=== PATIENT | female | born 1955 | race Caucasian/White ===

== ENCOUNTER → 2016-10-12 | Outpatient (CLI) | payer OTHER ==
[~2016-10-12] VITALS: Ht 157.5 cm; Wt 68.0 kg
[~2016-10-12] MED LIST: LIDOCAINE 2% INJ 100 MG/5 ML SDV (FOR ANES.) As Ordered ONE; NS 1,000 ML IV SCH; PROPOFOL 200 MG/20 ML VIAL As Ordered ONE; THYR0.237 XX; VITA200038 PO; [UNRECOGNIZED DRUG - CODE] PO; [UNRECOGNIZED DRUG - REMARK]
--- NOTE | 2016-10-12 08:04 | ROOR ---
Patient Name: Jessica Mancera Procedure Date: 10/12/2016 7:25 AM Date of : 1955 Age: 60 Room: [facility] Gender: Female Note Status: Finalized Procedure: Total Colonoscopy to Cecum + Cold Snare Polypectomy + Hemoclips Indications: Colon cancer screening in patient at increased risk: Colorectal cancer in father, High risk colon cancer surveillance: Personal history of colonic polyps Providers: Wolfgang Shea MD Referring MD: ALLEN GUERRERO NP Requesting Provider: Medicines: Monitored Anesthesia Care Complications: No immediate complications. Procedure: Pre-Anesthesia Assessment: - The heart rate, respiratory rate, oxygen saturations, blood pressure, adequacy of pulmonary ventilation, and response to care were monitored throughout the procedure. The Colonoscope was introduced through the anus and advanced to the cecum, identified by appendiceal orifice and ileocecal valve. The colonoscopy was performed without difficulty. The patient tolerated the procedure well. The quality of the bowel preparation was excellent. Findings: The perianal and digital rectal examinations were normal. Non-bleeding internal hemorrhoids were found during retroflexion. The hemorrhoids were small and Grade I (internal hemorrhoids that do not prolapse). A small polyp was found in the proximal ascending colon. The polyp was sessile. The polyp was removed with a cold snare. Resection and retrieval were complete. To prevent bleeding after the polypectomy, two hemostatic clips were successfully placed (MR conditional). There was no bleeding at the end of the procedure. The exam was otherwise without abnormality on direct and retroflexion views. Impression: - Non-bleeding internal hemorrhoids. - One small polyp in the proximal ascending colon, removed with a cold snare. Resected and retrieved. Clips (MR conditional) were placed. - The examination was otherwise normal on direct and retroflexion views. - The exam was otherwise normal to the cecum. Recommendation: - Patient has a contact number available for emergencies. The signs and symptoms of potential delayed complications were discussed with the patient. Return to normal activities tomorrow. Written discharge instructions were provided to the patient. - High fiber diet. - Discharge patient to home. - Continue present medications. - Await pathology results. - Telephone GI clinic for pathology results in 1 week. - Repeat colonoscopy for surveillance based on pathology results. - Return to referring physician. - The findings and recommendations were discussed with the patient's family. Wolfgang Shea MD Wolfgang Shea MD 10/12/2016 8:04:06 AM This report has been signed electronically. Number of Addenda: 0 Note Initiated On: 10/12/2016 7:25 AM Estimated Blood Loss: Estimated blood loss: none.
[2016-10-12 08:30] VITALS: BP 96/68
== END | disposition home or self-care (01) ==
LOC: M OPP 06:40
PROVIDERS: ATTEND Internal Medicine Gastroenterology
DX: Z12.11 Encounter for screening for malignant neoplasm of colon (principal); D12.2 Benign neoplasm of ascending colon; K64.0 First degree hemorrhoids; Z86.010 Personal history of colon polyps; Z80.0 Family history of malignant neoplasm of digestive organs; E78.5 Hyperlipidemia, unspecified; E03.9 Hypothyroidism, unspecified; R12 Heartburn; G43.909 Migraine, unspecified, not intractable, without status migrainosus; Z78.0 Asymptomatic menopausal state; R06.83 Snoring; N18.9 Chronic kidney disease, unspecified; R32 Unspecified urinary incontinence; Z87.891 Personal history of nicotine dependence; Z88.5 Allergy status to narcotic agent; Z88.0 Allergy status to penicillin; Z79.899 Other long term (current) drug therapy

== ENCOUNTER → 2016-10-21 | Outpatient (REF) | payer OTHER ==
[~2016-10-21] MED LIST changes: -LIDOCAINE 2% INJ 100 MG/5 ML SDV (FOR ANES.) As Ordered ONE; -NS 1,000 ML IV SCH; -PROPOFOL 200 MG/20 ML VIAL As Ordered ONE
== END ==
LOC: M LAB REF 12:14
PROVIDERS: ATTEND Internal Medicine
DX: E03.9 Hypothyroidism, unspecified (principal)

== ENCOUNTER → 2017-07-23 | Outpatient (REF) | payer OTHER ==
[2017-07-23 12:33] LABS: C REACTIVE PROTEIN QUANTITATIV < 0.30 MG/DL (0.00-0.30); FREE T3 3.2 PG/ML (2.2-4.0)
[2017-07-23 12:46] LABS: ESTRADIOL 21.9 PG/ML
[2017-07-25 00:06] LABS: ANTINUCLEAR ANTIBODIES DIRECT Negative (Negative); HOMOCYST(E)INE SERUM 8.9 umol/L (0.0-15.0); TESTOSTERONE FREE (DIRECT) 1.5 pg/mL (0.0-4.2)
== END ==
LOC: M LAB REF 11:51
DX: Z79.890 Hormone replacement therapy (principal)
CPT/HCPCS: 84403

== ENCOUNTER → 2017-09-06 | Outpatient (CLI) | payer OTHER | LOC: M LRY 10:45 | DX: S59.911A Unspecified injury of right forearm, initial encounter (principal); X58.XXXA Exposure to other specified factors, initial encounter; Y92.9 Unspecified place or not applicable | CPT/HCPCS: 73110; G0463 ==

== ENCOUNTER → 2017-12-28 | Outpatient (REF) | payer OTHER ==
[2017-12-28 20:08] LABS: C REACTIVE PROTEIN QUANTITATIV 0.46 MG/DL (0.00-0.30); ESTRADIOL < 19.0 PG/ML
[2017-12-28 20:08] LABS: PROGESTERONE 10.5 NG/ML
[2017-12-31 00:06] LABS: ANTINUCLEAR ANTIBODIES DIRECT Negative (Negative); HOMOCYST(E)INE SERUM 9.6 umol/L (0.0-15.0)
== END ==
LOC: M LAB REF 17:19
DX: Z51.81 Encounter for therapeutic drug level monitoring (principal); Z79.890 Hormone replacement therapy
CPT/HCPCS: 84403

== ENCOUNTER → 2018-05-12 | Outpatient (REF) | payer OTHER ==
[2018-05-12 18:25] LABS: FREE T3 3.2 PG/ML (2.2-4.0); FREE T4 0.93 NG/DL (0.76-1.46)
[2018-05-12 18:27] LABS: TOTAL 25(OH) VITAMIN D 61.2 NG/ML (30.0-100.0)
[2018-05-12 18:28] LABS: PROGESTERONE 7.34 NG/ML
[2018-05-13 10:21] LABS: THYROGLOBULIN ANTIBODY < 15.0 U/ML (<60.0); THYROID PEROXIDASE ANTIBODY < 28.0 U/ML (<60.0)
[2018-05-17 00:19] LABS: ESTROGENS TOTAL 64 pg/mL (.); T3 REVERSE 13.9 ng/dL (9.2-24.1); TESTOSTERONE FREE (DIRECT) 0.6 pg/mL (0.0-4.2)
== END ==
LOC: M LAB REF 16:49
PROVIDERS: ATTEND Nurse Practitioner Family
DX: F41.9 Anxiety disorder, unspecified (principal); E01.8 Other iodine-deficiency related thyroid disorders and allied conditions; N95.8 Other specified menopausal and perimenopausal disorders

== ENCOUNTER → 2018-06-21 | Outpatient (CLI) | payer OTHER ==
[2018-06-21 17:15] LABS: FREE T3 3.8 PG/ML (2.2-4.0); FREE T4 0.99 NG/DL (0.76-1.46); PROGESTERONE 10.6 NG/ML; TOTAL 25(OH) VITAMIN D 56.7 NG/ML (30.0-100.0)
[2018-06-25 09:50] LABS: DEHYDROEPIANDROSTERONE UNCONJ 305 ng/dL (31-701); ESTROGENS TOTAL 99 pg/mL (.); TESTOSTERONE FREE (DIRECT) 1.6 pg/mL (0.0-4.2)
== END ==
LOC: M WUC 13:19
PROVIDERS: ATTEND Nurse Practitioner Pediatrics
DX: F43.10 Post-traumatic stress disorder, unspecified (principal); N95.8 Other specified menopausal and perimenopausal disorders; E03.9 Hypothyroidism, unspecified

== ENCOUNTER → 2018-07-22 | Outpatient (CLI) | payer OTHER ==
[~2018-07-22] MED LIST changes: -THYR0.237 XX; +[UNRECOGNIZED DRUG - CODE] XX
== END ==
LOC: M WUC 13:50
PROVIDERS: ATTEND Nurse Practitioner Pediatrics
DX: F43.10 Post-traumatic stress disorder, unspecified (principal); N95.8 Other specified menopausal and perimenopausal disorders; E03.9 Hypothyroidism, unspecified

== ENCOUNTER → 2018-09-14 | Outpatient (CLI) | payer OTHER ==
[2018-09-14 13:19] LABS: CHOLESTEROL RISK RATIO 3.409 (<5); FREE T3 4.8 PG/ML (2.2-4.0); FREE T4 0.91 NG/DL (0.76-1.46)
[2018-09-14 13:22] LABS: PROGESTERONE 3.93 NG/ML
[2018-09-18 00:06] LABS: DEHYDROEPIANDROSTERONE SULFATE 85.5 ug/dL (29.4-220.5); DEHYDROEPIANDROSTERONE UNCONJ 233 ng/dL (31-701); ESTROGENS TOTAL 92 pg/mL (.); TESTOSTERONE FREE (DIRECT) 1.1 pg/mL (0.0-4.2)
== END ==
LOC: M WUC 10:04
PROVIDERS: ATTEND Nurse Practitioner Pediatrics
DX: E03.9 Hypothyroidism, unspecified (principal); N95.8 Other specified menopausal and perimenopausal disorders; F43.10 Post-traumatic stress disorder, unspecified

== ENCOUNTER → 2018-09-29 | Outpatient (CLI) | payer OTHER | LOC: M WUC 11:22 | PROVIDERS: ATTEND Nurse Practitioner Pediatrics | DX: E78.00 Pure hypercholesterolemia, unspecified (principal); E03.9 Hypothyroidism, unspecified; F43.10 Post-traumatic stress disorder, unspecified ==

== ENCOUNTER → 2019-03-02 | Outpatient (CLI) | payer OTHER ==
[2019-03-02 13:40] LABS: HEMATOCRIT 45.6 % (36.0-47.0); HEMOGLOBIN 14.7 g/dl (12.0-15.5); MEAN CORPUSCULAR HEMOGLOBIN 30.1 pg (27.0-33.0); MEAN CORPUSCULAR HGB CONC 32.2 g/dl (32.0-36.5); MEAN CORPUSCULAR VOLUME 93.4 fl (80.0-96.0); PLATELET COUNT, AUTOMATED 259 10^3/uL (150-450); RED BLOOD COUNT 4.88 10^6/uL (4.00-5.40); WHITE BLOOD COUNT 4.2 10^3/uL (4.0-10.0)
[2019-03-02 13:53] LABS: FREE T3 4.3 PG/ML (2.2-4.0); FREE T4 0.8 NG/DL (0.76-1.46)
[2019-03-02 13:55] LABS: PROGESTERONE 1.16 NG/ML; TOTAL 25(OH) VITAMIN D 68.6 NG/ML (30.0-100.0)
[2019-03-06 00:07] LABS: ENDOMYSIAL ABY IgA Negative (Negative); ESTROGENS TOTAL 84 pg/mL (.); TESTOSTERONE FREE (DIRECT) 1.2 pg/mL (0.0-4.2); TISSUE TRANSGLUTAMINASE IgA <2 U/mL (0-3); TISSUE TRANSGLUTAMINASE IgG <2 U/mL (0-5); UNITSIGA FOR GLIADIN IGA 4 units (0-19); UNITSIGG FOR GLIADIN IGG 2 units (0-19)
== END ==
LOC: M WUC 09:37
PROVIDERS: ATTEND Nurse Practitioner Pediatrics
DX: F43.10 Post-traumatic stress disorder, unspecified (principal); N95.8 Other specified menopausal and perimenopausal disorders; E78.00 Pure hypercholesterolemia, unspecified; E03.9 Hypothyroidism, unspecified

== ENCOUNTER → 2020-03-22 | Outpatient (CLI) | payer OTHER ==
[~2020-03-22] MED LIST changes: +CALC500C16 PO; +COQ-100C5 PO; +D31000TA2 PO; +FISH1000 PO; +NP T60TA PO; +garlique; +progesterone cream; +testosterone TOP
== END ==
LOC: M LABSMTC 12:25
PROVIDERS: ATTEND Anesthesiology
DX: Z01.812 Encounter for preprocedural laboratory examination (principal); Z20.828 Contact with and (suspected) exposure to other viral communicable diseases

== ENCOUNTER 2020-03-27 08:44 | Day surgery (SDC) | payer OTHER ==
[~2020-03-27] VITALS: Ht 157.5 cm; Wt 68.5 kg
[~2020-03-27 08:44] MED LIST changes: +NS 1,000 ML IV ONE
[2020-03-27] MEDS ORDERED: LIDOCAINE 2% 100MG/5ML SDV (FOR ANES.) As Ordered ONE (09:38)
[2020-03-27] MEDS ORDERED: propofoL 200 MG/20 ML VIAL As Ordered ONE ×2 (09:38→10:37)
--- NOTE | 2020-03-27 10:57 | ROOR ---
Patient Name: Jessica Mancera Procedure Date: 03/27/2020 10:26 AM Date of : 1955 Age: 64 Room: [facility] Gender: Female Note Status: Finalized Procedure: Total Colonoscopy to Cecum + Cold Snare + Biopsy Polypectomy + ileoscopy Indications: High risk colon cancer surveillance: Personal history of colonic polyps, Last colonoscopy: 2016 Providers: Wolfgang Shea MD Referring MD: Rosaura Lopez NP Requesting Provider: Medicines: Monitored Anesthesia Care Complications: No immediate complications. Procedure: Pre-Anesthesia Assessment: - The heart rate, respiratory rate, oxygen saturations, blood pressure, adequacy of pulmonary ventilation, and response to care were monitored throughout the procedure. The Colonoscope was introduced through the anus and advanced to the cecum, identified by appendiceal orifice and ileocecal valve. The colonoscopy was performed without difficulty. The patient tolerated the procedure well. The quality of the bowel preparation was excellent. Findings: The perianal and digital rectal examinations were normal. Non-bleeding internal hemorrhoids were found during retroflexion. The hemorrhoids were small and Grade I (internal hemorrhoids that do not prolapse). Two sessile polyps were found in the entire colon. The polyps were small in size. These polyps were removed with a cold snare. Resection and retrieval were complete. No other significant abnormalities were identified in a careful examination of the remainder of the colon. The exam was otherwise without abnormality on direct and retroflexion views. The terminal ileum appeared normal. Impression: - Non-bleeding internal hemorrhoids. - Two small polyps in the entire colon, removed with a cold snare. Resected and retrieved. - The examination was otherwise normal on direct and retroflexion views. - The examined portion of the ileum was normal. - The exam was otherwise normal to the cecum. Recommendation: - Patient has a contact number available for emergencies. The signs and symptoms of potential delayed complications were discussed with the patient. Return to normal activities tomorrow. Written discharge instructions were provided to the patient. - High fiber diet. - Discharge patient to home. - Continue present medications. - Await pathology results. - Telephone GI clinic for pathology results in 1 week. - Return to referring physician. - Repeat colonoscopy in 5 years for surveillance based on pathology results. - Return to referring physician. - The findings and recommendations were discussed with the patient. Procedure Code(s): --- Professional --- 60112, Colonoscopy, flexible; with removal of tumor(s), polyp(s), or other lesion(s) by snare technique Diagnosis Code(s): --- Professional --- Z86.010, Personal history of colonic polyps K64.0, First degree hemorrhoids K63.5, Polyp of colon CPT copyright 2019 [employer]. All rights reserved. The codes documented in this report are preliminary and upon cabinetmaker supervisor review may be revised to meet current compliance requirements. Wolfgang Shea MD Wolfgang Shea MD 03/27/2020 10:57:52 AM Electronically signed by Wolfgang Shea MD Number of Addenda: 0 Note Initiated On: 03/27/2020 10:26 AM Estimated Blood Loss: Estimated blood loss: none.
[2020-03-27 11:13] VITALS: BP 106/59
== END 2020-03-27 11:16 | disposition home or self-care (01) ==
LOC: M OPP 08:44
PROVIDERS: ATTEND Internal Medicine Gastroenterology
DX: Z12.11 Encounter for screening for malignant neoplasm of colon (principal); Z86.010 Personal history of colon polyps; K64.0 First degree hemorrhoids; D12.6 Benign neoplasm of colon, unspecified; Z79.899 Other long term (current) drug therapy; Z88.0 Allergy status to penicillin; Z88.5 Allergy status to narcotic agent

== ENCOUNTER 2020-05-15 17:22 | Emergency (ER) | payer OTHER ==
[~2020-05-15] VITALS: Ht 157.5 cm; Wt 70.7 kg
[~2020-05-15 17:22] MED LIST changes: -NS 1,000 ML IV ONE
--- NOTE | 2020-05-15 18:17 | REP ---
INDICATION: CHEST PAIN. COMPARISON: Comparison chest x-ray May 27, 2010. TECHNIQUE: Portable upright AP chest radiograph. FINDINGS: The lungs are well inflated and free of infiltrate. Pleural angles are sharp. Heart size is normal. Pulmonary vasculature is not increased. Monitoring electrodes are seen. There is minimal linear fibrosis in the left base. IMPRESSION: No active disease. <Electronically signed by Derrick Ewing > 05/15/20 [id number]
[2020-05-15 18:21] LABS: BASO % 0.4 % (0.0-1.0); EOS # 0.1 10^3/uL (0.0-0.5); EOS % 0.9 % (0.0-3.0); HEMATOCRIT 40.3 % (36.0-47.0); HEMOGLOBIN 13.2 g/dl (12.0-15.5); LYMPH # 2.7 10^3/uL (1.5-5.0); LYMPH % 49.5 % (24.0-44.0); MEAN CORPUSCULAR HEMOGLOBIN 30.3 pg (27.0-33.0); MEAN CORPUSCULAR HGB CONC 32.8 g/dl (32.0-36.5); MEAN CORPUSCULAR VOLUME 92.4 fl (80.0-96.0); MONO # 0.4 10^3/uL (0.0-0.8); MONO % 7.5 % (0.0-5.0); NEUTROPHILS # 2.3 10^3/uL (1.5-8.5); NEUTROPHILS % 41.5 % (36.0-66.0); PLATELET COUNT, AUTOMATED 255 10^3/uL (150-450); RED BLOOD COUNT 4.36 10^6/uL (4.00-5.40); WHITE BLOOD COUNT 5.5 10^3/uL (4.0-10.0)
[2020-05-15 18:34] LABS: INR 0.87
[2020-05-15 18:35] LABS: PARTIAL THROMBOPLASTIN TIME 26.2 SECONDS (24.2-38.5)
[2020-05-15 18:46] LABS: ALBUMIN 3.7 GM/DL (3.2-5.2); ALT/SGPT 63 U/L (12-78); BILIRUBIN,DIRECT 0.1 MG/DL (0.0-0.2); BILIRUBIN,TOTAL 0.3 MG/DL (0.2-1.0); BLOOD UREA NITROGEN 20 MG/DL (7-18); CARBON DIOXIDE LEVEL 33 MEQ/L (21-32); CHLORIDE LEVEL 104 MEQ/L (98-107); CK-MB VALUE MASS < 1.0 NG/ML (<3.6); CPK CREATINE PHOSPHOKINASE 56 U/L (26-192); CREATININE FOR GFR 1.02 MG/DL (0.55-1.30); GLOMERULAR FILTRATION RATE 58.5 (>45); GLUCOSE, FASTING 97 MG/DL (70-100); LIPASE 254 U/L (73-393); MB/CK RELATIVE INDEX 1.79 (< OR =4); NT-PRO BNP 36 PG/ML (<125); POTASSIUM SERUM 3.7 MEQ/L (3.5-5.1); SODIUM LEVEL 140 MEQ/L (136-145); TOTAL PROTEIN 7.1 GM/DL (6.4-8.2); TROPONIN I < 0.02 NG/ML (< 0.10)
--- NOTE | 2020-05-15 19:21 | ECGEPIP ---
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
[2020-05-15] MEDS ORDERED: GI COCKTAIL 50ML BTL(HYOSCYAMINE/MAALOX/LIDOCAINE VISCOUS)(1:3:1) PO ONE (20:15)
[2020-05-15] MEDS ORDERED: OMEP40CA97 PO (21:40)
[2020-05-15 22:05] VITALS: BP 121/76
== END 2020-05-15 22:12 | disposition home or self-care (01) ==
LOC: M ED 17:22
DX: K21.9 Gastro-esophageal reflux disease without esophagitis (principal); E78.5 Hyperlipidemia, unspecified; Z79.890 Hormone replacement therapy; Z79.899 Other long term (current) drug therapy; Z88.0 Allergy status to penicillin; Z88.5 Allergy status to narcotic agent

== ENCOUNTER → 2020-07-02 | Outpatient (REF) | payer OTHER ==
[~2020-07-02] MED LIST changes: +OMEP40CA97 PO
[2020-07-02 17:29] LABS: APPEARANCE, URINE CLEAR (CLEAR); BACTERIA, URINE AUTO NEGATIVE (NEGATIVE); BILIRUBIN, URINE AUTO NEGATIVE (NEGATIVE); BLOOD, URINE BLOOD NEGATIVE (NEGATIVE); COLOR, URINE STRAW (YELLOW); GLUCOSE, URINE (UA) AUTO NEGATIVE (NEGATIVE); KETONE, URINE AUTO NEGATIVE (NEGATIVE); LEUKOCYTE ESTERASE, URINE AUTO NEGATIVE (NEGATIVE); NITRITE, URINE AUTO NEGATIVE (NEGATIVE); PROTEIN, URINE AUTO NEGATIVE (NEGATIVE); RBC, URINE AUTO 1 /HPF (0-3); SQUAMOUS EPITHELIAL CELL UR AU 0 /HPF (0-6); UROBILINOGEN, URINE AUTO 0.2 mg/dL (0.0-2.0); WBC, URINE AUTO 0 /HPF (0-3)
== END ==
LOC: M SMT 16:58
PROVIDERS: ATTEND Nurse Practitioner Women's Health
DX: R39.15 Urgency of urination (principal)

== ENCOUNTER → 2020-08-20 | Outpatient (CLI) | payer OTHER ==
[~2020-08-20] MED LIST changes: +THYRPOW XX; -[UNRECOGNIZED DRUG - CODE] XX
--- NOTE | 2020-08-20 14:20 | REP ---
INDICATION: PAIN, RADICULOPATHY COMPARISON: None. TECHNIQUE: AP, lateral, flexion/extension, bilateral oblique, and open-mouth views. FINDINGS: Alignment and lordosis is maintained. There is no evidence for acute fracture / compression injury or subluxation. Relatively normal age-appropriate changes are appreciated with subtle marginal spurring. Disc spaces are maintained. Oblique views demonstrate patent neural foramen. Open mouth view demonstrates normal C1-C2 articulation and odontoid process.. IMPRESSION: Generalized age-related changes. <Electronically signed by Chacho Rolon > 08/20/20 [id number]
--- NOTE | 2020-08-20 14:22 | REP ---
INDICATION: PAIN COMPARISON: None. TECHNIQUE: Internal rotation, external rotation, and Y view. FINDINGS: No acute fracture or dislocation. The acromioclavicular and glenohumeral joints are intact and essentially age-appropriate. No periarticular calcifications or significant degenerative changes are appreciated. Sub acromial space is normal. Surrounding soft tissues are unremarkable. IMPRESSION: Essentially normal age-appropriate left shoulder radiographs. <Electronically signed by Chacho Rolon > 08/20/20 [id number]
== END ==
LOC: M WUC 13:43
PROVIDERS: ATTEND Physician Assistant Medical
DX: M54.2 Cervicalgia (principal); M54.12 Radiculopathy, cervical region

== ENCOUNTER → 2021-03-21 | Outpatient (CLI) | payer OTHER ==
[~2021-03-21] MED LIST changes: +OMEP40CA4 PO; -OMEP40CA97 PO
--- NOTE | 2021-03-21 14:40 | REPMRS ---
Patient History The patient states she has not had a clinical breast exam in over a year. Patient is postmenopausal. Family history of colorectal cancer at age 83 in father. Took hormonal contraceptives for 28 years. Patient states no breast complaints today. Patient has signed MRS History Sheet. Digital Woman Screen Mammo: March 21, 2021 - Exam #: [id number] Bilateral CC and MLO view(s) were taken. Technologist: RT Álvaro Prior study comparison: May 19, 2013, bilateral bilat screen digital mammo, performed at [facility] ([place]). June 04, 2011, bilateral bilat screen digital mammo, performed at [facility] ([place]). FINDINGS: There are scattered fibroglandular densities. Screening. Digital screening (2D) mammography was performed bilaterally in the CC and MLO projections. Additionally, breast tomosynthesis (3D mammography) was performed bilaterally in the CC and MLO projections. Todays exam was compared to the prior exam/exams. By history, the patient has no complaints of a palpable breast abnormality or other significant breast complaints. The breasts are unchanged in size and shape. There are no ken-soft tissue densities or spiculated masses. There is no internal architectural distortion. Once again, stable benign appearing calcifications are seen.There are no suspicious ken-calcific clusters. Skin thickening or nipple retraction is not present. IMPRESSION: BI-RADS Category 2- Benign Findings. There is no evidence of malignant alteration of the breasts. Followup examination recommended in one year. The Volpara volumetric breast density category is B, there are scattered areas of fibroglandular densities. This mammogram was read with the assistance of [facility],an FDA approved computer aided detection system for mammography. The lifetime Tyrer-Cuzick score is 6.2 % Negative x-ray reports should not delay surgical consultation if a dominant or clinically suspicious mass is present. Not all breast cancers can be identified by mammography. Therefore, we recommend that you continue to perform regular breast self-examination and physical examination and then promptly contact your physician of any concerns or changes. Adenosis and dense breasts may obscure an underlying neoplasm. Assessment: BI-RADS/ACR category 2 mammogram. Benign Findings. Recommendation Routine screening mammogram of both breasts in 1 year. Electronically Signed By: Wood Stratton DO 03/21/21 [id number]
--- NOTE | 2021-03-21 15:00 | DEXAMM ---
INDICATION: SCREEN OSTEO. COMPARISON: 12/29/2018, 02/03/2002. TECHNIQUE: Bone density was measured using dual-energy x-ray absorptiometry (DEXA). FINDINGS: AP SPINE L1-L4 BMD 1.222 g/cm2 Young Adult T-Score 0.2 Age Matched Z-Score 1.7. LT FEMUR, TOTAL BMD 1.016 g/cm2 Young Adult T-Score 0.1 Age Matched Z-Score 1.2. LT NECK BMD 0.900 g/cm2 Young Adult T-Score -1.0 Age Matched Z-Score 0.4. RT FEMUR, TOTAL BMD 1.045 g/cm2 Young Adult T-Score 0.3 Age Matched Z-Score 1.4. RT NECK BMD 0.969 g/cm2 Young Adult T-Score -0.5 Age Matched Z-Score 0.9. IMPRESSION: There is normal bone density of the spine. There is low bone density of the left hip. There is normal bone density of the right hip. The density of the spine has decreased 1.2% since the initial exam on 02/03/2002. The density of the spine decreased 1.1% since most recent exam on 12/29/2018. The density of the left hip has decreased 11.3% since initial exam on 02/03/2002. The density of the left hip has increased 3.3% since most recent exam on 12/29/2018. The density of the right hip has decreased 8.3% since the initial exam on 02/03/2002. The density of the right hip has increased 1.6% since the most recent exam on 12/29/2018. FOLLOW-UP: Recommendation for the next bone density exam: 2 years. <Electronically signed by Colby Mondragon > 03/21/21 [id number]
== END ==
LOC: M WHC 13:34
PROVIDERS: ATTEND Registered Nurse
DX: Z12.31 Encounter for screening mammogram for malignant neoplasm of breast (principal); Z13.220 Encounter for screening for lipoid disorders; Z80.0 Family history of malignant neoplasm of digestive organs; R92.1 Mammographic calcification found on diagnostic imaging of breast; M85.852 Other specified disorders of bone density and structure, left thigh

== ENCOUNTER → 2021-06-26 | Outpatient (REF) | payer OTHER ==
[~2021-06-26] MED LIST changes: -D31000TA2 PO; +VITA100093 PO
[2021-06-26 17:20] LABS: FOLATE 12.6 NG/ML
== END ==
LOC: M LAB REF 16:15
PROVIDERS: ATTEND Registered Nurse
DX: R53.83 Other fatigue (principal)

== ENCOUNTER → 2022-04-22 | Outpatient (REF) | payer OTHER ==
[2022-04-22 18:00] LABS: PERCENT SATURATION 28.1 % (13.2-45.0)
[2022-04-22 18:03] LABS: FERRITIN 90.2 NG/ML (7.3-270.7)
[2022-04-22 18:15] LABS: CREATININE, URINE 99.7 MG/DL
[2022-04-22 18:16] LABS: MALB URINE SIEMENS < 3.0 MG/DL
== END ==
LOC: M LAB REF 17:00
PROVIDERS: ATTEND Internal Medicine Nephrology
DX: E61.1 Iron deficiency (principal); D63.1 Anemia in chronic kidney disease; N18.31 Chronic kidney disease, stage 3a

== ENCOUNTER → 2022-06-08 | Outpatient (CLI) | payer OTHER | LOC: M WHC 12:45 | PROVIDERS: ATTEND Nurse Practitioner Family | DX: Z12.31 Encounter for screening mammogram for malignant neoplasm of breast (principal) ==

== ENCOUNTER 2023-03-10 14:04 | Observation (INO) | payer MEDICARE, OTHER ==
[~2023-03-10] VITALS: Ht 157.5 cm; Wt 66.7 kg
[2023-03-10] MEDS ORDERED: MORPHINE 4 MG/ML 1ML VIAL IV ONE (15:45)
[2023-03-10] MEDS ORDERED: ONDANSETRON 4MG 2ML VIAL IV ONE ×2 (16:25→18:20)
[2023-03-10] MEDS: CYCLOBENZAPRINE 10MG TABLET PO ONE ×2 (18:14→19:41)
[2023-03-10] MEDS: PERCOCET 5MG/325MG TAB PO ONE ×2 (18:14→19:41)
[2023-03-10] MEDS ORDERED: ACETAMINOPHEN TAB 650MG DOSE (2X325MG) PO PRN (18:25)
[2023-03-10] MEDS ORDERED: MED REC IN PROGRESS XX SCH (18:40)
[2023-03-10 19:34] LABS: BASO % 0.3 % (0.0-1.0); HEMATOCRIT 40.5 % (36.0-47.0); HEMOGLOBIN 13.4 g/dl (12.0-15.5); LYMPH # 1.4 10^3/uL (1.5-5.0); LYMPH % 18.5 % (24.0-44.0); MEAN CORPUSCULAR HEMOGLOBIN 30.9 pg (27.0-33.0); MEAN CORPUSCULAR HGB CONC 33.1 g/dl (32.0-36.5); MEAN CORPUSCULAR VOLUME 93.5 fl (80.0-96.0); MONO # 0.4 10^3/uL (0.0-0.8); MONO % 4.9 % (2.0-8.0); NEUTROPHILS # 5.9 10^3/uL (1.5-8.5); PLATELET COUNT, AUTOMATED 217 10^3/uL (150-450); RED BLOOD COUNT 4.33 10^6/uL (4.00-5.40); WHITE BLOOD COUNT 7.8 10^3/uL (4.0-10.0)
[2023-03-10 19:53] LABS: BLOOD UREA NITROGEN 16 MG/DL (9-23); CALCIUM LEVEL 9.5 MG/DL (8.3-10.6); CARBON DIOXIDE LEVEL 27 MMOL/L (20-31); CHLORIDE LEVEL 105 MMOL/L (98-107); GLOMERULAR FILTRATION RATE > 60.0 (>45); GLUCOSE, FASTING 113 MG/DL (74-106); POTASSIUM SERUM 4.1 MMOL/L (3.5-5.1); SODIUM LEVEL 140 MMOL/L (136-145)
[2023-03-10] MEDS ORDERED: COEN100T PO (20:48)
[2023-03-10] MEDS ORDERED: [UNRECOGNIZED DRUG - OTHER] PO (20:48)
[2023-03-10] MEDS ORDERED: OMEGCAP4 PO (20:48)
[2023-03-10] MEDS ORDERED: METOCLOPRAMIDE INJ 10MG/2ML VIAL IV ONE (20:50)
[2023-03-10] MEDS ORDERED: HOME MED LIST COMPLETE! XX SCH (20:50)
[2023-03-10] MEDS: SENOKOT S TAB PO SCH (21:00)
[2023-03-10 21:02] VITALS: BP 140/97; TEMP 97.5; O2SAT 97
[2023-03-11] MEDS: ONDANSETRON 4MG 2ML VIAL IV PRN (00:30)
[2023-03-11] MEDS: PERCOCET 5MG/325MG TAB PO PRN ×3 (00:30→17:20)
[2023-03-11 06:57] VITALS: BP 111/78; TEMP 97.8; O2SAT 97
[2023-03-11] MEDS: ENOXAPARIN 40MG/0.4ML SYRINGE (J1650 PER 10MG) SC SCH (07:44)
[2023-03-11] MEDS: SENOKOT S TAB PO SCH ×2 (07:45→20:25)
[2023-03-11 14:00] VITALS: BP 99/59; TEMP 98.6; O2SAT 92
[2023-03-11 23:17] VITALS: BP 110/74; TEMP 98.1; O2SAT 97
[2023-03-12] VITALS (7 sets, daily range): BP systolic 101–124; BP diastolic 64–86; TEMP 97.5–98.6; O2SAT 93–98
[2023-03-12] MEDS: PERCOCET 5MG/325MG TAB PO PRN ×3 (06:53→20:57)
[2023-03-12] MEDS: D5W/0.9% SODIUM CHLORIDE 1,000 ML IV SCH ×2 (08:53→20:46)
[2023-03-12] MEDS: SENOKOT S TAB PO SCH ×2 (08:53→20:47)
[2023-03-12] MEDS: ENOXAPARIN 40MG/0.4ML SYRINGE (J1650 PER 10MG) SC SCH (08:54)
[2023-03-12] MEDS ORDERED: fentaNYL 100 MCG/2 ML INJECTION As Ordered ONE (15:36)
[2023-03-12] MEDS ORDERED: MIDAZOLAM INJ 2MG/2ML VIAL As Ordered ONE (15:36)
[2023-03-12] MEDS ORDERED: propofoL 200 MG/20 ML VIAL As Ordered ONE (15:38)
[2023-03-12] MEDS ORDERED: LIDOCAINE 2% 100MG/5ML SDV (FOR ANES.) As Ordered ONE (15:38)
[2023-03-12] MEDS ORDERED: ROCURONIUM BROMIDE 50MG/5ML VIAL As Ordered ONE ×2 (15:58→17:31)
[2023-03-12] MEDS ORDERED: KETOROLAC 60MG 2ML VIAL As Ordered ONE (16:00)
[2023-03-12] MEDS ORDERED: ONDANSETRON 4MG 2ML VIAL As Ordered ONE (16:00)
[2023-03-12] MEDS ORDERED: ceFAZolin 2 GM/D5W 50 ML IV BAG As Ordered ONE (17:01)
[2023-03-12] MEDS ORDERED: ACETAMINOPHEN 1000MG 100ML IV BAG As Ordered ONE (17:05)
[2023-03-12] MEDS ORDERED: VANCOMYCIN 1000MG/20ML VIAL As Ordered ONE (17:59)
[2023-03-12] MEDS ORDERED: SUGAMMADEX SODIUM 500 MG/5 ML VIAL (BRIDION) As Ordered ONE (18:07)
[2023-03-12] MEDS ORDERED: ONDANSETRON 4MG 2ML VIAL IV PRN (18:15)
[2023-03-12] MEDS ORDERED: LR 1,000 ML IV SCH (18:15)
[2023-03-12] MEDS ORDERED: oxyCODONE 5MG TAB PO PRN (18:15)
[2023-03-12] MEDS ORDERED: HYDROMORPHONE HCL 0.5 MG/ 0.5 ML SYRINGE IV PRN (18:15)
[2023-03-12] MEDS: fentaNYL 100 MCG/2 ML INJECTION IV PRN ×3 (18:42→18:55)
[2023-03-12] MEDS: ONDANSETRON 4MG 2ML VIAL IV PRN (18:45)
[2023-03-12] MEDS ORDERED: METOCLOPRAMIDE INJ 10MG/2ML VIAL IV STA (19:03)
[2023-03-12] MEDS ORDERED: PROMETHAZINE 25MG/ML 1ML VIAL IV ONE (20:25)
[2023-03-12] MEDS ORDERED: PROMETHAZINE 25MG SUPP PR ONE (21:00)
[2023-03-12] MEDS: ceFAZolin SOD 1 GM in D5W MINI-BAG PLUS 50 ML IV SCH (22:04)
[2023-03-13 02:29] VITALS: BP 107/69; TEMP 97.5; O2SAT 97
[2023-03-13 05:38] VITALS: BP 103/72; TEMP 97.5; O2SAT 99
[2023-03-13] MEDS: PERCOCET 5MG/325MG TAB PO PRN ×2 (06:00→11:33)
[2023-03-13] MEDS: ceFAZolin SOD 1 GM in D5W MINI-BAG PLUS 50 ML IV SCH ×2 (06:00→14:01)
[2023-03-13 06:05] LABS: HEMATOCRIT 35.2 % (36.0-47.0); HEMOGLOBIN 11.3 g/dl (12.0-15.5); MEAN CORPUSCULAR HEMOGLOBIN 30.6 pg (27.0-33.0); MEAN CORPUSCULAR HGB CONC 32.1 g/dl (32.0-36.5); MEAN CORPUSCULAR VOLUME 95.4 fl (80.0-96.0); PLATELET COUNT, AUTOMATED 184 10^3/uL (150-450); RED BLOOD COUNT 3.69 10^6/uL (4.00-5.40); WHITE BLOOD COUNT 5.8 10^3/uL (4.0-10.0)
[2023-03-13 07:04] VITALS: O2SAT 98
[2023-03-13] MEDS: SENOKOT S TAB PO SCH (08:18)
[2023-03-13] MEDS: ENOXAPARIN 40MG/0.4ML SYRINGE (J1650 PER 10MG) SC SCH (08:18)
[2023-03-13] MEDS ORDERED: ONDA4TAB6 PO (09:07)
[2023-03-13] MEDS ORDERED: PERCOCET PO (09:07)
[2023-03-13] MEDS ORDERED: SENN-52 PO (09:07)
[2023-03-13] MEDS ORDERED: XARE10TA PO (12:21)
[2023-03-13] MEDS ORDERED: ECOT81TA5 PO (12:23)
== END 2023-03-13 15:55 | disposition home or self-care (01) ==
LOC: M ED 14:04 → EDBD 14:04 → M ED INP 18:25 → ENRESERV 19:39 → M MS5PR 21:06
PROVIDERS: ADMIT Internal Medicine Nephrology; ATTEND Internal Medicine Nephrology
DX: S82.002A Unspecified fracture of left patella, initial encounter for closed fracture (principal); W54.8XXA Other contact with dog, initial encounter; Y92.008 Other place in unspecified non-institutional (private) residence as the place of occurrence of the external cause; Y93.89 Activity, other specified; Y99.9 Unspecified external cause status; E03.9 Hypothyroidism, unspecified; N39.3 Stress incontinence (female) (male); N39.41 Urge incontinence; K64.9 Unspecified hemorrhoids; K21.9 Gastro-esophageal reflux disease without esophagitis; G43.909 Migraine, unspecified, not intractable, without status migrainosus; R89.1 Abnormal level of hormones in specimens from other organs, systems and tissues; F32.A Depression, unspecified; Z79.82 Long term (current) use of aspirin; Z79.899 Other long term (current) drug therapy; Z90.5 Acquired absence of kidney; Z88.0 Allergy status to penicillin; Z88.5 Allergy status to narcotic agent
CPT/HCPCS: 27524; 36415; 73564; 73590; 76000; 80048; 84443; 85025; 85027; 87635; 96361; 96365; 96366; 96372; 96375; 96376; 97161; 97164; 97530; 99285; C1713; G0378; J0131; J0665; J0690; J1100; J1170; J1650; J1885; J2250; J2405; J2550; J2765; J3010; J3370

== ENCOUNTER → 2023-03-29 | Outpatient (CLI) | payer MEDICARE, OTHER ==
[~2023-03-29] MED LIST changes: +COEN100T PO; +ECOT81TA5 PO; +OMEGCAP4 PO; +ONDA4TAB6 PO; +PERCOCET PO; +SENN-52 PO; +XARE10TA PO; +[UNRECOGNIZED DRUG - OTHER] PO
== END ==
LOC: M SOG 07:57
PROVIDERS: ATTEND Physician Assistant
DX: S82.042D Displaced comminuted fracture of left patella, subsequent encounter for closed fracture with routine healing (principal); M25.462 Effusion, left knee

== ENCOUNTER → 2023-04-27 | Outpatient (CLI) | payer MEDICARE, OTHER | LOC: M SOG 13:01 | PROVIDERS: ATTEND Physician Assistant | DX: S82.042D Displaced comminuted fracture of left patella, subsequent encounter for closed fracture with routine healing (principal) ==

== ENCOUNTER → 2023-05-28 | Outpatient (CLI) | payer MEDICARE, OTHER | LOC: M SOG 07:56 | PROVIDERS: ATTEND Physician Assistant | DX: S82.042D Displaced comminuted fracture of left patella, subsequent encounter for closed fracture with routine healing (principal) ==

== ENCOUNTER → 2023-06-09 | Outpatient (CLI) | payer MEDICARE, OTHER | LOC: M WHC 13:23 | PROVIDERS: ATTEND Physician Assistant Medical | DX: Z12.31 Encounter for screening mammogram for malignant neoplasm of breast (principal); R92.323 Mammographic fibroglandular density, bilateral breasts; Z13.820 Encounter for screening for osteoporosis; M85.852 Other specified disorders of bone density and structure, left thigh ==

== ENCOUNTER → 2023-06-28 | Outpatient (CLI) | payer MEDICARE, OTHER | LOC: M SOG 09:17 | PROVIDERS: ATTEND Physician Assistant | DX: S82.042D Displaced comminuted fracture of left patella, subsequent encounter for closed fracture with routine healing (principal); M19.011 Primary osteoarthritis, right shoulder; M25.511 Pain in right shoulder ==

== ENCOUNTER → 2023-07-14 | Outpatient (REF) | payer MEDICARE, OTHER | LOC: M LAB REF 12:46 | PROVIDERS: ATTEND Physician Assistant Medical | DX: R41.3 Other amnesia (principal); R53.83 Other fatigue ==

== ENCOUNTER → 2023-08-03 | Outpatient (CLI) | payer MEDICARE, OTHER | LOC: M RAD 13:31 | PROVIDERS: ATTEND Nurse Practitioner Family | DX: N88.8 Other specified noninflammatory disorders of cervix uteri (principal); N95.0 Postmenopausal bleeding ==

== ENCOUNTER → 2024-03-23 | Outpatient (CLI) | payer OTHER ==
[~2024-03-23] MED LIST changes: +ONDA-282 PO; -ONDA4TAB6 PO
== END ==
LOC: M RAD 11:48
PROVIDERS: ATTEND Physician Assistant Medical
DX: E78.00 Pure hypercholesterolemia, unspecified (principal); I65.23 Occlusion and stenosis of bilateral carotid arteries

== ENCOUNTER → 2024-06-14 | Outpatient (CLI) | payer OTHER | LOC: M WHC 13:33 | PROVIDERS: ATTEND Physician Assistant Medical | DX: Z12.31 Encounter for screening mammogram for malignant neoplasm of breast (principal) ==

== ENCOUNTER → 2024-07-03 | Outpatient (REF) | payer MEDICARE, OTHER | LOC: M LAB REF 12:25 | PROVIDERS: ATTEND Physician Assistant Medical | DX: E01.8 Other iodine-deficiency related thyroid disorders and allied conditions (principal) ==

== ENCOUNTER 2025-02-12 08:17 | Day surgery (SDC) | payer OTHER ==
[~2025-02-12] VITALS: Ht 157.5 cm; Wt 74.0 kg
[~2025-02-12 08:17] MED LIST changes: +CHOL100012 PO; +COQ150CH PO; +FISH1CAP26 PO; +GINK125C PO; +HYPOTHALAMUS PMG PO; +OYST1TAB PO; +PAROTID PMG PO; +RA N1TAB PO; +[UNRECOGNIZED DRUG - OTHER] PO
[2025-02-12] MEDS ORDERED: LIDOCAINE 2% 100 MG/5 ML SDV (FOR ANES.) As Ordered ONE (10:33)
[2025-02-12 11:03] VITALS: TEMP 97.7
[2025-02-12 11:19] VITALS: BP 113/75; O2SAT 98
== END 2025-02-12 11:37 | disposition home or self-care (01) ==
LOC: M OPP 08:17
PROVIDERS: ATTEND Internal Medicine Gastroenterology
DX: Z12.11 Encounter for screening for malignant neoplasm of colon (principal); D12.0 Benign neoplasm of cecum; K57.30 Diverticulosis of large intestine without perforation or abscess without bleeding; Z86.0100 Personal history of colon polyps, unspecified; Z88.0 Allergy status to penicillin; Z88.5 Allergy status to narcotic agent; Z79.899 Other long term (current) drug therapy

== ENCOUNTER → 2025-02-19 | Outpatient (REF) | payer OTHER | LOC: M LAB REF 12:58 | PROVIDERS: ATTEND Physician Assistant Medical | DX: E01.8 Other iodine-deficiency related thyroid disorders and allied conditions (principal) ==

== ENCOUNTER → 2025-03-30 | Outpatient (CLI) | payer OTHER | LOC: M LAB 13:07 | PROVIDERS: ATTEND Nurse Practitioner Family | DX: R68.82 Decreased libido (principal) ==